=== PATIENT | male | born 1960 | race Caucasian/White ===

== ENCOUNTER → 2024-03-13 | Outpatient (CLI) | payer BC, SELFPAY ==
[2024-03-13 14:35] LABS: Misc Send Out* See Sep Rpt
== END | disposition home or self-care (01) ==
PROVIDERS: PCP Family Medicine; Referring Provider Family Medicine; Visit Provider Family Medicine
DX: E01.2 Iodine-deficiency related (endemic) goiter, unspecified (principal)
CPT/HCPCS: 83789

== ENCOUNTER 2024-04-08 16:17 | Inpatient (IN) | payer BC, SELFPAY ==
[2024-04-08] VITALS (29 sets, daily range): BP systolic 114–179; BP diastolic 81–114; PULSE 70–122; RESP 8–28; TEMP 36.3–36.8; O2SAT 92–97; BMI 34.0
--- NOTE | 2024-04-08 16:34 | EKG_ITS ---
[facility] (Formerly [facility]) Test Date: 2024-04-08 Pat Name: ASHLEIGH RUIZ Department: Room: - Gender: Male Adoption Manager: : 1960 Requested By: ED Temporary Provider Order Number: [id number] Reading MD: ED Temporary Provider Measurements Intervals [place] Rate: 117 P: -51 [place]: 157 QRS: -70 QRSD: 109 T: 60 QT: 326 QTc: 455 Interpretive Statements SINUS TACHYCARDIA PATTERN CONSISTENT WITH PULMONARY DISEASE INCOMPLETE RIGHT BUNDLE BRANCH BLOCK [90+ ms QRS DURATION, TERMINAL R IN V1/V2, 40+ ms S IN I/aVL/V4/V5/V6] LEFT ANTERIOR FASCICULAR BLOCK [QRS AXIS <= -45, QR IN I, RS IN II] Compared to ECG 09/29/2022 21:17:45 Incomplete right bundle-branch block now present First degree AV block no longer present /store/S0/[id number]/ecg/[id number].pdf
--- NOTE | 2024-04-08 17:08 | XR_ITS ---
Examination: CT brain head without contrast. 2-D sagittal coronal reconstructions Date and time of exam:April 08, 2024 at 1714 hrs. Indications: Stroke alert, onset focal neurologic deficit today CTDI: vol (mGy):55.8 DLP: (mGycm):1114 Technique: Multiple CT axial sections of the brain have been obtained, 5 mm slice thickness. Contrast has not been administered. 2-D sagittal, coronal reconstructions have been obtained Low dose protocols were performed. One or more of the following dose reduction techniques were used; automated exposure control, adjustment of the mA and/or KV according to patient size, use of iterative reconstruction technique. Findings: No significant ventricular enlargement. Intra-axial or extra-axial hemorrhage density is not seen. No mass effect or midline shift Basal cisterns are not remarkable. Fourth ventricle is midline. Cranial vault intact. Impression: Negative for acute hemorrhage, mass effect or midline shift
--- NOTE | 2024-04-08 17:08 | EDRME_ITS ---
Rapid Medical Screening Exam [facility] Arrival date/time: 04/08/24 16:17 63-year-old male presents to the emergency department today complaints of headache, hypertension and left-sided arm weakness and left leg weakness Chief Complaint: Chest Pain Vital signs: Vital Signs Temperature 97.4 F 04/08/24 16:39 Pulse Rate 122 H 04/08/24 16:39 Respiratory Rate 20 04/08/24 16:39 Blood Pressure 133/96 H 04/08/24 16:39 Pulse Oximetry (%) 96 04/08/24 16:39 Oxygen Delivery Method Room Air 04/08/24 16:39
--- NOTE | 2024-04-08 17:08 | XR_ITS ---
Examination: CTA carotids with intravenous contrast CTA brain, head with intravenous contrast. 2-D sagittal, coronal reconstructions. 3-D reconstructions. Exam date and time: April 08, 2024 1721 hrs. Indications: Stroke alert, onset focal neurologic deficit today CTDI: vol (mGy) 23.3 DLP: (mGycm) 184 Technique: Multiple CTA axial brain, head carotid images post intravenous contrast injection 100 cc, [id number]. 2-D sagittal, coronal reconstructions. 3-D reconstructions, 3-D post processing including vascular maximum intensity projection images. Low dose protocols were performed. One or more of the following dose reduction techniques were used; automated exposure control, adjustment of the mA and/or KV according to patient size, use of iterative reconstruction technique. Findings: No significant common carotid carotid bifurcation or internal carotid artery stenoses Dominant right vertebral artery, quite small but intact left vertebral artery Intracranial vertebral arteries basilar artery posterior cerebral branches do fill with 80% stenosis left posterior cerebral artery P3 segment No significant stenoses juxtasellar or supracondylar portions internal carotid arteries M1 segments middle cerebral arteries, anterior cerebral arteries Impression: No significant neck arterial stenoses 80% stenosis P3 segment left posterior cerebral artery No cerebral large vessel occlusions or thrombus
--- NOTE | 2024-04-08 17:12 | PC.NURSE ---
THIS NURSE CURRENTLY WITH PATIENT IN CT.
[2024-04-08 17:25] LABS: Base Excess, Venous 3 (-3-3); O2 Saturation, Venous 79 % (96-97); PCO2, Venous 36 mmHg (36-56); PO2, Venous 38 mmHg (15-58); pH, Venous 7.48 (7.33-7.66)
[2024-04-08 17:28] LABS: Basophils # (Auto) 0.1 Thou/mm3 (0.0-0.2); Basophils % (Auto) 1 % (0-2.5); Eosinophils # (Auto) 0.2 Thou/mm3 (0.0-0.5); Eosinophils % (Auto) 2 % (0-10); Hematocrit 41.5 % (41.0-53.0); Hemoglobin 14.7 g/dL (13.5-16.0); Immature Granulocytes % (Auto) 0 % (0-0); Immature Granulocytes Auto 0.04 Thou/mm3 (0.00-0.00); Lymphocytes # (Auto) 6.7 Thou/mm3 (1.0-4.8); Lymphocytes % (Auto) 48 % (10-50); Mean Corpuscular HGB Conc 35.4 g/dl (31.0-37.0); Mean Corpuscular Hemoglobin 30.1 pg (25.0-35.0); Mean Corpuscular Volume 85 fL (80-100); Monocytes # (Auto) 1.4 Thou/mm3 (0.0-0.8); Monocytes % (Auto) 10 % (0-12); Neutrophils # (Auto) 5.6 Thou/mm3 (1.8-7.7); Neutrophils % (Auto) 40 % (37-80); Nucleated Red Blood Cell % 0 /100 WBC (0); Platelet Count 495 Thou/mm3 (140-440); RDW Standard Deviation 36.6 fL (35.1-43.9); Red Blood Count 4.88 Miln/mm3 (4.50-5.90); White Blood Count 14.1 Thou/mm3 (3.8-10.6)
[2024-04-08 17:32] LABS: Beta Hydroxybutyrate 0.1 mmol/L (<0.6)
[2024-04-08 17:44] LABS: Partial Thromboplastin Time 24.3 Seconds (22.0-36.0)
--- NOTE | 2024-04-08 17:45 | PC.NURSE ---
PATIENT SPEAKING WITH TELE NEUROLOGIST, PATIENT VERBALIZES UNDERSTANDING OF TENECTEPLASE MEDICATION RISKS AND BENEFITS, PATIENT VERBALLY CONSENTS TO RECEIVING TENECTEPLASE.
[2024-04-08 17:47] LABS: Glucose Estimated Average 346 mg/dL (80-131); Hemoglobin A1C 13.7 % Hgb (4.8-6.0)
[2024-04-08 17:48] LABS: B-Type Natriuretic Peptide < 20 pg/mL (0-100)
[2024-04-08] MEDS: TENECTEPLASE INJ 50 MG VIAL 25 MG IV (17:53)
[2024-04-08 18:05] LABS: Alanine Aminotransferase 15 U/L (10-49); Albumin, Serum 4.4 gm/dL (3.4-4.8); Albumin/Globulin Ratio 1.6 (1.2-2.2); Alkaline Phosphatase 106 U/L (46-116); Anion Gap 8 (7-16); Aspartate Amino Transferase 14 U/L (0-34); BUN/Creatinine Ratio 8 Ratio (12-20); Bilirubin,Total 0.2 mg/dL (0.3-1.2); Blood Urea Nitrogen 10 mg/dL (9-23); Calcium 9.5 mg/dL (8.3-10.6); Calcium (Corrected) 9.5 mg/dL (8.5-10.1); Carbon Dioxide 27.8 mMol/L (20.0-31.0); Chloride 96 mMol/L (98-107); Creatinine (Component) 1.2 mg/dL (0.6-1.3); Estimated Creatinine Clearance 87.2 mL/min (>60); Globulin 2.8 gm/dL (2.3-3.5); Magnesium 2.1 mg/dL (1.6-2.6); Osmolality,Calculated 286 (275-295); Potassium 3.3 mMol/L (3.4-5.1); Sodium 132 mMol/L (136-145); Total Protein 7.2 gm/dL (5.7-8.2); Troponin I < 0.020 ng/mL (0.0-0.045); eGFR > 60 See Note
--- NOTE | 2024-04-08 18:10 | PD.TNEURO ---
Tele Neuro Consultation Consultation Date 04/08/24 Most Recent Vital Signs Last Vital Signs Temp 98.0 F 04/08/24 17:52 Pulse 97 04/08/24 17:52 Resp 20 04/08/24 17:52 BP 179/114 H 04/08/24 17:52 Pulse Ox 96 04/08/24 17:52 O2 Del Method Room Air 04/08/24 17:52 Laboratory-Coagulation Panel PT 11.0 Seconds (9.0-12.2) 04/08/24 17:17 INR 1.0 (0.9-1.3) 04/08/24 17:17 APTT 24.3 Seconds (22.0-36.0) 04/08/24 17:17 Consultation Narrative [facility] Patient Name:???Hitesh Sanchez Date of :???1960 Identification Number:??? Date of Service:???04/08/2024 17:20:26 Diagnosis:?I63.89 - Cerebrovascular accident (CVA) due to other mechanism ([facility]) Impression: ?Patient is a 63-year-old male with a past medical history significant for hypertension, diabetes, hyper lipidemia is being evaluated for concerns of left-sided numbness and weakness. ?Acute onset of left-sided numbness involving the upper and lower extremity and mild weakness along with mild chest pain. Had prior episodes like this where his left side became numb, however it fully resolved. Mentions that he started taking aspirin. He took 2 full dose aspirin after symptoms started. ?Is within IV thrombolytic window. ?Mild pronator drift on the left upper extremity along with ataxia. Mild lower extremity weakness and numbness on the left side. Gait is impaired as patient is stumbling when he is walking. ?Suspicion is for acute vascular event involving the right basal ganglia, small vessel etiology. ?Risks and benefits of IV thrombolysis was discussed in detail with the patient. Indications/contraindications were also discussed in detail. ?Patient agrees to IV thrombolytic treatment. TNKase was administered without any complications. ?Follow-up post TNKase protocol. ?Complete stroke workup. Our recommendations are outlined below. Recommendations: IV Tenecteplase recommended. I confirmed the following. (Patient name, , MRN, Blood Pressure, dose of Thrombolytic and waste, weight completed by stretcher/scale not stated weight, have ED staff inform ED MD of thrombolytic decision) Thrombolytic bolus given Without Complication. IV Tenecteplase Total Dose ? 25.0 mg Routine post Thrombolytic monitoring including neuro checks and blood pressure control during/after treatment Monitor blood pressure Check blood pressure and neuro assessment every 15 min for 2 h, then every 30 min for 6 h, and finally every hour for 16 h. Manage Blood Pressure per post Thrombolytic protocol. ? Follow designated hospital protocol for admission and post thrombolytic care ? CT brain 24 hours post Thrombolytic ? NPO until swallowing screen performed and passed ? No antiplatelet agents or anticoagulants (including heparin for DVT prophylaxis) in first 24 hours ? No Gardiner catheter, nasogastric tube, arterial catheter or central venous catheter for 24 hr, unless absolutely necessary ? Telemetry ? Bedside swallow evaluation ? HOB less than 30 degrees ? Euglycemia ? Avoid hyperthermia, PRN acetaminophen ? DVT prophylaxis ? Inpatient Neurology Consultation ? Stroke evaluation as per inpatient neurology recommendations Discussed with ED physician Advanced Imaging:CTA Head and Neck Completed. LVO:No Patient in not a candidate for ELAINA Metrics: Last Known Well: 04/08/2024 15:30:00 Dispatch Time: 04/08/2024 17:20:26 Arrival Time: 04/08/2024 17:23:00 Initial Response Time: 04/08/2024 17:26:28Symptoms: left side numbness. Initial patient interaction: 04/08/2024 17:38:16 NIHSS Assessment Completed: 04/08/2024 17:38:30Patient is a candidate for Thrombolytic. Thrombolytic Medical Decision: 04/08/2024 17:39:27 Needle Time: 04/08/2024 17:52:00Weight Noted by Staff: 124.[address] head showed no acute hemorrhage or acute core infarct. Primary Provider Notified of Diagnostic Impression and Management Plan on: 04/08/2024 17:58:01 Thrombolytic Contraindications: Last Known Well > 4.5 hours:?No CT Head showing hemorrhage:?No Ischemic stroke within 3 months:?No Severe head trauma within 3 months:?No Intracranial/intraspinal surgery within 3 months:?No History of intracranial hemorrhage:?No Symptoms and signs consistent with an SAH:?No GI malignancy or GI bleed within 21 days:?No Coagulopathy: Platelets <100 000 /mm3, INR >1.7, aPTT>40 s, or PT >15 s:?No Treatment dose of LMWH within the previous 24 hrs:?No Use of NOACs in past 48 hours:?No Glycoprotein IIb/IIIa receptor inhibitors use:?No Symptoms consistent with infective endocarditis:?No Suspected aortic arch dissection:?No Intra-axial intracranial neoplasm:?No Thrombolytic Decision and Management Plan: Management with thrombolytic treatment was explained to the Patient as was risks and benefits and alternatives to the treatment. Patient agrees with the decision to proceed with thrombolytic treatment. . All questions were answered and the Patient expressed understanding of the treatment plan. History of Present Illness:Patient is a 63 year old Male. Patient was brought by private transportation with symptoms of left side numbness. Patient is a 63-year-old male with a past medical history significant for hypertension, diabetes, hyper lipidemia is being evaluated for concerns of left-sided numbness and weakness. Patient mentions that around 2 hours back he was perfectly normal. He was walking around the house. He was feeling something was not right, so he went and took a nap. Around 90 minutes ago he started noticing that there was some mild chest pain and numbness involving the left side of his body. Mentions that he is able to walk, however there is weakness in his left leg and kind of stumbles around. Mentions that he took 2 full dose aspirins before he came into the ED. ? Past Medical History: ?Hypertension ?Diabetes Mellitus ?Hyperlipidemia Medications: No Anticoagulant use? Antiplatelet use:?Yes?ASA Reviewed EMR for current medications Allergies:? Description:?As per chart Social History: Drug Use: No Family History: There is no family history of premature cerebrovascular disease pertinent to this consultation ROS : 14 Points Review of Systems was performed and was negative except mentioned in HPI. Past Surgical History: There Is No Surgical History Contributory To Today?s Visit ? Examination: BP(129/96),?Pulse(95),?Blood Glucose(465) 1A: Level of Consciousness - Alert; keenly responsive?+ 0 1B: Ask Month and Age - Both Questions Right?+ 0 1C: Blink Eyes & Squeeze Hands - Performs Both Tasks?+ 0 2: Test Horizontal Extraocular Movements - Normal?+ 0 3: Test Visual Angela - No Visual Loss?+ 0 4: Test Facial Palsy (Use Grimace if Obtunded) - Normal symmetry?+ 0 5A: Test Left Arm Motor Drift - Drift, but doesn't hit bed?+ 1 5B: Test Right Arm Motor Drift - No Drift for 10 Seconds?+ 0 6A: Test Left Leg Motor Drift - Drift, but doesn't hit bed?+ 1 6B: Test Right Leg Motor Drift - No Drift for 5 Seconds?+ 0 7: Test Limb Ataxia (FNF/Heel-Burrell) - Ataxia in 1 Limb?+ 1 8: Test Sensation - Mild-Moderate Loss: Less Sharp/More Dull?+ 1 9: Test Language/Aphasia - Normal; No aphasia?+ 0 10: Test Dysarthria - Normal?+ 0 11: Test Extinction/Inattention - No abnormality?+ 0 NIHSS Score:?4 Pre-Morbid Modified Derick Scale:1 Points = No significant disability despite symptoms; able to carry out all usual duties and activities Spoke with :?ED Provider This consult was conducted in real time using interactive audio and video technology. Patient was informed of the technology being used for this visit and agreed to proceed. Patient located in hospital and provider located at home/office setting. Patient is being evaluated for possible acute neurologic impairment and high probability of imminent or life-threatening deterioration. I spent total of 56 minutes providing care to this patient, including time for face to face visit via telemedicine, review of medical records, imaging studies and discussion of findings with providers, the patient and/or family. Dr Cam Cruz [facility] For Inpatient follow-up with [facility] physician please call [facility] at . As we are not an outpatient service for any post hospital discharge needs please contact the hospital for assistance. If you have any questions for the [facility] physicians or need to reconsult for clinical or diagnostic changes please contact us via [facility] at . ?
[2024-04-08 18:12] LABS: Glucose 508 mg/dL (74-106)
[2024-04-08 18:49] LABS: Collection Type, Urine Clean Catch; Squamous Epithelial Cell,Urine 0 /hpf (0-5)
[2024-04-08 18:56] LABS: Bilirubin,Urine Negative (Negative); Blood,Urine Negative (Negative); Clarity,Urine Clear (Clear/Hazy); Color,Urine Lt-Yellow (Lt Yel-Yel); Glucose, Urine 4+ (Negative); Ketones,Urine Negative (Negative); Leukocyte Esterase,Urine Negative (Negative); Nitrite,Urine Negative (Negative); PH,Urine 6.5 (5.0-7.0); Protein,Urine Negative (Neg - Trace); RBC,Urine 1 /hpf (0-3); Specific Gravity,Urine 1.043 (1.001-1.035); Urobilinogen,Urine Negative mg/dL (0.0-1.0); WBC,Urine < 1 /hpf (0-5)
--- NOTE | 2024-04-08 19:25 | PC.NURSE ---
First contact with pt in Room 17, pt changed into gown, connected to bedside monitor, call light within reach. Pt's currently at bedside.
[2024-04-08] MEDS: ONDANSETRON INJ 2 MG/ML INJ 2 ML 4 MG IV (19:32)
[2024-04-08] MEDS: ACETAMINOPHEN IVPB 1,000 MG/100 ML VIAL 250 MG IV (19:35)
--- NOTE | 2024-04-08 20:13 | PC.NURSE ---
ED provider currently at bedside evaluating pt.
--- NOTE | 2024-04-08 20:22 | PD.EDCHEST ---
ED Chest Pain RME/HPI General Chief Complaint: Chest Pain Stated Complaint: CHEST PAIN RADIATING DOWN LEFT ARM Time Seen by Provider: 04/08/24 17:51 Arrival date/time: 04/08/24 16:17 This is a 63-year-old male that comes in with complaints of chest pain radiating down his left arm, headache, high blood pressure, left-sided arm weakness and numbness and left-sided leg weakness and numbness that started at approximately 3:30 PM today. Patient reports that he had a very similar episode that happened 04/06/24 at night. At that time he only had left arm weakness and numbness. Patient called his son which she is a registered nurse and he told him to take 2 full dose aspirins. Patient states that his symptoms resolved after the aspirin was taken at that time. Patient saw his primary doctor the next day and and his primary provider told him he was going to send him with a patternmaker metal. Today patient had another episode but it also involved his lower extremities so he was brought to the emergency room. Patient took 2 full dose aspirins prior to arrival per patient. Patient has a history of high blood pressure, diabetes. 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 Patient had E. coli infection after that procedure And had an abdominal drain for a long period of time after surgery. There is no drain at this time. Patient also had history of several hernia surgeries in the past. RME / HPI RME / HPI narrative: 04/08/24 16:17 63-year-old male presents to the emergency department today complaints of headache, hypertension and left-sided arm weakness and left leg weakness Related Data Home Medications ?Medication ?Instructions ?Recorded ?Confirmed Hydrocodone/Acetaminophen * (NORCO 1 tab PO Q6HR PRN Pain #0 tabs 08/25/16 04/09/24 10/325 *) insulin glargine-yfgn 100 unit/mL 40 unit subcut QAM 04/08/24 04/08/24 (3 mL) subcutaneous pen (Semglee (insulin glargine-yfgn) Pen) lorazepam 1 mg tablet 1 mg PO Q8H Anxiety 04/08/24 04/09/24 losartan 100 1 tab PO QDAY HTN 02/01/25 02/01/25 mg-hydrochlorothiazide 25 mg tablet nifedipine 60 mg tablet,extended 60 mg PO .qhs htn 04/08/24 04/09/24 release Allergies Allergy/AdvReac Type Severity Reaction Status Date / Time No Known Allergies Allergy Verified 04/08/24 16:20 Review of Systems Review of Systems Systems Reviewed: All systems reviewed, normal except as documented Past Medical History Past Medical History ENDOCRINE: Positive Endocrine Disorders and Diabetes Mellitus Type 2 OTHER HISTORY: Positive Hospitalization, Chicken Pox, Measles and Mumps Social History SMOKING STATUS: Never smoker SUBSTANCE USE: does not use ALCOHOL: Never ED Exam Narrative Physical exam: Patient was seen by previous provider upon arrival. I did not see patient prior to getting the TNKase. Assessment done by me was after patient received TNKase. General General appearance: Present alert and in no apparent distress Head Head exam: Present atraumatic Eye Eye exam: Present normal appearance, PERRL and EOMI ENT ENT exam: Present normal exam, normal oropharynx and mucous membranes moist Neck Neck exam: Present normal inspection, full ROM and trachea midline Chest Chest inspection: Present normal inspection and symmetric chest wall rise Respiratory Respiratory exam: Present normal lung sounds bilaterally Cardiovascular Cardiovascular exam: Present regular rate, normal rhythm and normal heart sounds Abdominal Exam Abdominal exam: Present soft Extremities Exam Extremities exam: Present normal inspection and full ROM Back Exam Back exam: Present normal inspection and full ROM Neurological Exam Neurological exam: Present alert, oriented X3 and other (Patient reports altered sensation to his left arm, patient slightly weaker on the left arm and leg, left leg strength 4/5, left arm strength 4/5, right leg strength 5/5, right arm strength 5/5) Psychiatric Psychiatric exam: Present normal affect and normal mood Skin Skin exam: Present warm, dry, intact and normal color Course Quality Measures Suspected type of Stroke: Acute Ischemic Last known well (date): 04/08/24 Last known well (time): 15:30 Tenecteplase given: within 60 min of arrival stroke Orders Category Date Time Status Bedside Blood Glucose NOW Care 04/08/24 17:08 Active COVID-19 Screening Questionnaire NOW Care 04/08/24 21:00 Active Shipping Helper NOW Care 04/08/24 17:08 Active Continuous Pulse Oximetry NOW Care 04/08/24 17:08 Completed Decision to Admit X1 Care 04/08/24 21:00 Completed EKG (ED ONLY) *Do not use* NOW Care 04/08/24 16:34 Completed Glucose [Bedside Blood Glucose] NOW Care 04/08/24 20:20 Active Insert IV NOW Care 04/08/24 17:08 Active NIH Stroke Scale now Care 04/08/24 17:08 Active NPO NOW Care 04/08/24 17:08 Active Nurse Swallow Screen x1 Care 04/08/24 17:08 Active Consult to Neurology / Tele-Neurology Routine Cons 04/08/24 17:[address] angio stroke protocol Stat Exams 04/08/24 17:[address] stroke protocol Stat Exams 04/08/24 17:08 Completed EKG (ED Only) Stat Exams 04/08/24 16:34 Draft A1C [Glycohemoglobin w (eAG)] Stat Lab 04/08/24 17:17 Completed B-Type Natriuretic Peptide Stat Lab 04/08/24 17:17 Completed Beta Hydroxybutyrate Stat Lab 04/08/24 17:17 Completed CBC Stat Lab 04/08/24 17:17 Completed Comprehensive Metabolic Panel Stat Lab 04/08/24 17:17 Completed Drug Screen,Urine Stat Lab 04/08/24 18:42 Completed Magnesium Stat Lab 04/08/24 17:17 Completed Partial Thromboplastin Time Stat Lab 04/08/24 17:17 Completed Prothrombin Time with INR Stat Lab 04/08/24 17:17 Completed Troponin I Stat Lab 04/08/24 17:17 Completed Urinalysis Stat Lab 04/08/24 18:42 Completed VBG [Venous Blood Gas] Stat Lab 04/08/24 17:17 Completed Acetaminophen Ivpb [Ofirmev Inj] Med 04/08/24 19:03 Discontinued 1,000 mg in 100 ml IV NOW Insulin Regular Med 04/08/24 20:28 Discontinued 10 unit SC X1 ONE Ondansetron Inj [Zofran Inj] Med 04/08/24 19:08 Discontinued 4 mg IV X1 ONE Potassium Chloride [K-Dur] Med 04/08/24 20:53 Discontinued 20 meq PO X1 ONE Tenecteplase Inj [TNKase Inj] Med 04/08/24 17:44 Discontinued 25 mg IV X1 ONE Tenecteplase Inj [TNKase Inj] Med 04/08/24 17:40 Discontinued 50 mg .ROUTE .STK-MED ONE Vital Signs Vital signs: Vital Signs Temperature 97.4 F 04/08/24 16:39 Pulse Rate 122 H 02/01/25 16:39 Respiratory Rate 20 04/08/24 16:39 Blood Pressure 133/96 H 04/08/24 16:39 Pulse Oximetry (%) 96 04/08/24 16:39 Oxygen Delivery Method Room Air 04/08/24 16:39 Procedures -ED EKG Interpretation #1: Date of EK04/08/24 Time of EK:41 Rate: 117 Interpretation: Interpreted by me (Sinus tachycardia with a incomplete right bundle branch block and left anterior fascicular block.n ) EKG Impression: No ectopy, Normal QRS and Normal intervals Chest Pain MDM Narrative MDM Narrative:: Stroke alert was called 1708. CT head shows: Findings: No significant ventricular enlargement. Intra-axial or extra-axial hemorrhage density is not seen. No mass effect or midline shift Basal cisterns are not remarkable. Fourth ventricle is midline. Cranial vault intact. Impression: Negative for acute hemorrhage, mass effect or midline shift CTA head and neck done: Findings: No significant common carotid carotid bifurcation or internal carotid artery stenoses Dominant right vertebral artery, quite small but intact left vertebral artery Intracranial vertebral arteries basilar artery posterior cerebral branches do fill with 80% stenosis left posterior cerebral artery P3 segment No significant stenoses juxtasellar or supracondylar portions internal carotid arteries M1 segments middle cerebral arteries, anterior cerebral arteries Impression: No significant neck arterial stenoses 80% stenosis P3 segment left posterior cerebral artery No cerebral large vessel occlusions or thrombus Dr. Brown was informed of patient upon arrival when stroke alert was called. Teleneurology was also contacted and they spoke to Dr Cam Cruz. Consultation was done and TNKase recommended. Patient was given TNKase at 1752 documented NIH. Was 3 at that time per teleneurology. Upon my initial assessment, patient had already been given TNKase and most of his symptoms have resolved. I assessed patient at bedside at approx 2000. Patient states that he is able to move his left arm and leg with no difficulty. Patient states his intake sensation to his left leg is almost resolved but still has some numbness and tingling to his left arm. Patient has a clear speech. No facial droop. Patient's labs show a white count of 14.1. Hemoglobin and hematocrit of 14.7 and 41.5, platelet count of 495, PT PT/INR unremarkable. Bmp shows a sodium of 132, potassium 3.3, chloride of 96, BUN/creatinine okay, glucose 508. Patient's hemoglobin A1c is 13.7. Troponin and BNP unremarkable. Patient was given some Tylenol for it headache he complained about initially. It seemed to help and resolve the headache. Patient was also given 10 units of subcu insulin. Patient data External records reviewed:: [facility] previous records Clinical information provided by:: patient Social determinants that could affect healthcare access:: none Patient has the following chronic illnesses:: see hpi How is presenting disease/condition affected by chronic disease/condition?: exacerbated by Evaluation data The following diagnostics were reviewed and interpreted by me:: lab results, radiology exam(s) and EKG tracing(s) Lab and/or radiology exams considered but not ordered:: none Interpretation Summary: see note Medications / Prescriptions Medications or Prescriptions considered but not ordered:: none Medication administrations:: Medication Administration History Acetaminophen (Acetaminophen 325 Mg Tablet) 650 mg PO Q6HR PRN PRN Reason: Fever >101, pain 1-3 Stop: 05/08/24 22:31 Last Admin: 04/08/24 23:35 Dose: 650 mg Documented By: Atorvastatin Calcium (Atorvastatin Calcium 20 Mg Tablet) 80 mg PO HS KM Stop: 05/09/24 20:59 Dextrose (Dextrose 50%-Water Inj 50 Ml Syringe) 25 ml IV Q15MIN PRN PRN Reason: BG 50-70 responsive npo pt Stop: 05/08/24 21:30 Dextrose (Dextrose 50%-Water Inj 50 Ml Syringe) 50 ml IV Q15MIN PRN PRN Reason: BG <50 OR BG <70 & pt unresponsive Stop: 05/08/24 21:30 Glucagon (Glucagon Inj 1 Mg Vial) 1 mg IM Q15MIN PRN PRN Reason: BG <70, and no IV access Insulin Glargine (Insulin Glargine (Lantus) 5 Unit/0.05 Ml (Per 5 Units)) 10 unit SC QDAY [facility] Stop: 05/09/24 08:59 Last Admin: 04/09/24 08:35 Dose: 10 unit Documented By: ELSIE Co-signed By: alyson Insulin Human Lispro (Insulin Lispro (Admelog) 1 Unit/0.01 Ml Unit) 0 unit SC AC [facility]; Protocol Stop: 05/09/24 07:29 Last Admin: 04/09/24 13:11 Dose: 2 unit Documented By: alyson Co-signed By: ZHANE Admin: 04/09/24 08:36 Dose: 1 unit Documented By: ELSIE Co-signed By: alyson Labetalol HCl (Labetalol Inj 5 Mg/Ml Vial 20 Ml) 5 mg IVP Q6H PRN PRN Reason: SBP> 185/90 Stop: 05/08/24 21:59 Discontinued Medications Acetaminophen (Acetaminophen 325 Mg Tablet) 650 mg PO X1 ONE Stop: 04/09/24 02:34 Last Admin: 04/09/24 02:33 Dose: 650 mg Documented By: Comments: per MD Haro, give another 650mg x1 Acetaminophen (Ofirmev Inj) 1,000 mg in 100 mls @ 250 mls/hr IV NOW ONE Stop: 04/08/24 19:26 Last Infusion: 04/08/24 19:59 Dose: Infused Documented By: Admin: 04/08/24 19:35 Dose: 250 mls/hr Documented By: TRACI Acetaminophen (Ofirmev Inj) 1,000 mg in 100 mls @ 250 mls/hr IV X1 ONE Stop: 04/09/24 13:11 Last Admin: 04/09/24 13:37 Dose: 250 mls/hr Documented By: alyson Insulin Human Regular (Insulin Hum Regular 1 Unit/0.01 Ml (Per Unit)) 10 unit SC X1 ONE Stop: 04/08/24 20:29 Last Admin: 04/08/24 20:34 Dose: 10 unit Documented By: TRACI Co-signed By: LAYLA Ketorolac Tromethamine (Ketorolac Inj 30 Mg/Ml Vial) 30 mg IVP X1 ONE Stop: 04/09/24 08:07 Last Admin: 04/09/24 08:35 Dose: 30 mg Documented By: ELSIE Ondansetron HCl (Ondansetron Inj 2 Mg/Ml Inj 2 Ml) 4 mg IV X1 ONE; Protocol Stop: 04/08/24 19:09 Last Admin: 04/08/24 19:32 Dose: 4 mg Documented By: TRACI Potassium Chloride (Potassium Chloride 20 Meq Tabcr) 20 meq PO X1 ONE Stop: 04/08/24 20:54 Last Admin: 04/08/24 21:02 Dose: 20 meq Documented By: TRACI Potassium Chloride (Potassium Chloride 20 Meq Tabcr) 40 meq PO X1 ONE Stop: 04/08/24 21:07 Last Admin: 04/08/24 21:10 Dose: Not Given Documented By: TRACI Non-Admin Reason: Duplicate Medication on eMAR Potassium Chloride (Potassium Chloride 20 Meq Tabcr) 40 meq PO X1 ONE Stop: 04/09/24 04:03 Last Admin: 04/09/24 04:15 Dose: 40 meq Documented By: Tenecteplase (Tenecteplase Inj 50 Mg Vial) Confirm Administered Dose 50 mg .ROUTE .STK-MED ONE Stop: 04/08/24 17:41 Last Admin: 04/08/24 18:50 Dose: Not Given Documented By: LAYLA Non-Admin Reason: Override Medication Tenecteplase (Tenecteplase Inj 50 Mg Vial) 25 mg IV X1 ONE Stop: 04/08/24 17:45 Last Admin: 04/08/24 17:53 Dose: 25 mg Documented By: LAYLA Co-signed By: MARIO see mar Consultations Consultation(s) initiated? (list below): Yes Diagnosis Most likely diagnosis given after review of the tests above:: Acute stroke Admission Indicated Admission indicated?: indicated Admission Request Was there a request for admission?: Yes Admission Attestation Admission request attestation: Discussed case with icu Hospitalist service regarding admission. Discussed patients ED course, exam findings, labs, and radiology results. The Hospitalist agrees to accept the patient for admission. Disposition Plan Disposition Plan: Admit Discharge Plan Plan Patient Disposition: Admit Acute Care w/in Hospital Patient condition on transfer: Stable Problem List Clinical Impression: Uncontrolled diabetes mellitus, HTN (hypertension), Acute CVA (cerebrovascular accident) PA/MULTICULTURAL MANAGER Supervising Physician PA/MULTICULTURAL MANAGER Supervising Physician: larry
[2024-04-08 20:25] LABS: Amphetamine/Methamp Scrn,U Negative (Negative); Barbiturate Screen,Urine Negative (Negative); Benzodiazepines Screen,Urine Negative (Negative); Benzoylecgonine Screen, Ur Negative (Negative); Fentanyl Screen,Urine Negative (Negative); Opiate Screen,Urine Positive (Negative); THC Screen,Urine Negative (Negative)
[2024-04-08] MEDS: INSULIN HUM REGULAR 1 UNIT/0.01 ML (PER UNIT) 10 UNIT SC (20:34)
[2024-04-08] MEDS: POTASSIUM CHLORIDE 20 mEq TABCR PO (21:02)
--- NOTE | 2024-04-08 21:16 | PC.LAC ---
Admitting MD currently at bedside evaluating pt.
--- NOTE | 2024-04-08 21:37 | PD.RESHP ---
Documentation for date of: 04/08/24 [facility] History of Present Illness History of present illness: Patient is a 63-year-old male with past medical history of hypertension, diabetes mellitus type 2, and pancreatic tail resection in 2022 [facility] that presented to the ED with left-sided weakness. Patient states symptoms started 1 hour prior to visiting ED where he started having left upper and left lower extremity weakness that progressively kept getting worse. Patient states on he had left upper extremity weakness and his son who is a nurse told him to take aspirin which seemed to help then. Teleneuro saw patient with NIHSS score of 4 and recommended tenecteplase. Patient agreed with plan and is now being admitted to ICU for close monitoring. Patient states to be feeling better now almost close to baseline after tenecteplase. Patient currently denies any headache, nausea, vomiting, fevers, positive chills, no chest pain, shortness of breath, abdominal pain, constipation, diarrhea, or burning on urination. Patient denies any known drug allergies. Patient denies any drug use, no tobacco, and drinks socially. Patient is full code. Vitals in ED: BP 133/96, HR 122, RR 20, T90 7.4 ?F, O2 96% room air. Pertinent labs: WBCs 14.1, platelets 495, potassium 3.3, glucose 508, A1c 13.7, troponin WNL. Urine positive for opiates. Patient given tenecteplase and potassium while in ED along with insulin. CT head negative for any acute hemorrhage or mass effect. CTA head and neck shows: No significant neck arterial stenoses. 80% stenosis P3 segment left posterior cerebral artery. No cerebral large vessel occlusions or thrombus. Exam Vital Signs Temp Pulse Resp BP Pulse Ox O2 Del Method O2 Flow Rate 97.7 F 76 19 118/88 H 97 Nasal Cannula 2 04/08/24 21:25 04/08/24 21:25 04/08/24 21:25 04/08/24 21:25 04/08/24 21:25 04/08/24 21:04/08/24 21: Narrative Exam GENERAL: Obese male, alert and oriented x3, no acute distress. HEENT: PERRLA, EOMI, nonicteric. HEART: Regular rate and rhythm, no murmurs, rubs or gallops. LUNGS: Distant breath sounds but clear to auscultation bilaterally with symmetrical chest rise. No labored breathing or intercostal retraction. ABDOMEN: Soft?obese, non-tender, no guarding or rebound tenderness. There are no abnormal masses palpated. Active bowel sounds. EXTREMITIES: Non-tender. No edema. Patient is able to move all 4 extremities well. SKIN: Warm and dry, no jaundice or rashes noted. NEURO: Cranial nerves II through XII appear grossly intact. There is no focal neurologic deficits noted. GCS is 15, 5 out of 5 bilateral upper extremity strength. 5 out of 5 right lower extremity strength. 4 out of 5 left lower extremity strength against resistance. Normal [id number]. PSYCHIATRIC: Patient is in normal mood and affect, cooperative. Results: Labs 04/08/24 17:17 04/08/24 17:17 Labs: Short CBC 04/08/24 Range/Units 17:17 WBC 14.1 H (3.8-10.6) Thou/mm3 Hgb 14.7 (13.5-16.0) g/dL Hct 41.5 (41.0-53.0) % Plt Count 495 H (140-440) Thou/mm3 BMP 04/08/24 17:17 Sodium 132 L Potassium 3.3 L Chloride 96 L Carbon Dioxide 27.8 BUN 10 Creatinine 1.2 Glucose 508 H* Calcium 9.5 Cardiac Enzymes 04/08/24 Range/Units 17:17 Troponin I < 0.020 (0.0-0.045) ng/mL Liver Function 04/08/24 Range/Units 17:17 Total Bilirubin 0.2 L (0.3-1.2) mg/dL AST 14 (0-34) U/L ALT 15 (10-49) U/L Alkaline Phosphatase 106 (46-116) U/L Albumin 4.4 (3.4-4.8) gm/dL Urine 04/08/24 Range/Units 18:42 Urine Color Lt-Yellow (Lt Yel-Yel) Urine Clarity Clear (Clear/Hazy) Urine pH 6.5 (5.0-7.0) Ur Specific [place] 1.043 H (1.001-1.035) Urine Protein Negative (Neg - Trace) Urine Glucose (UA) 4+ A (Negative) ABG Interpretation ABG results: 04/08/24 17:17 VBG pH 7.48 VBG pCO2 36 VBG pO2 38 VBG Base Excess 3 Quality Measures Quality Measures VTE prophylaxis (SCD's) and stroke Suspected type of Stroke: Acute Ischemic Last known well (date): 04/08/24 Last known well (time): 15:30 Tenecteplase given: > 60 min of arrival Rehab services: PT evaluation ordered and Speech Language Pathology eval ordered VTE Prophylaxis: mechanical Antithrombotic by day 2:: contraindicated (describe) Statin ordered: <75 y/o high intensity dose Anticoagulation ordered for A-fib or flutter (current or hx): contraindicated Medications Home Medications and Allergies Home Medications ?Medication ?Instructions ?Recorded ?Confirmed ?Type Hydrocodone/Acetaminophen * (NORCO 1 tab PO Q6HR PRN Pain #0 tabs 08/25/16 06/28/19 History *) Allergies Allergy/AdvReac Type Severity Reaction Status Date / Time No Known Allergies Allergy Verified 04/08/24 16:20 Visit Medications Atorvastatin Calcium (Atorvastatin Calcium 20 Mg Tablet) 80 mg PO HS KM Stop: 05/09/24 20:59 Dextrose (Dextrose 50%-Water Inj 50 Ml Syringe) 25 ml IV Q15MIN PRN PRN Reason: BG 50-70 responsive npo pt Stop: 05/08/24 21:30 Dextrose (Dextrose 50%-Water Inj 50 Ml Syringe) 50 ml IV Q15MIN PRN PRN Reason: BG <50 OR BG <70 & pt unresponsive Stop: 05/08/24 21:30 Glucagon (Glucagon Inj 1 Mg Vial) 1 mg IM Q15MIN PRN PRN Reason: BG <70, and no IV access Insulin Glargine (Insulin Glargine (Lantus) 5 Unit/0.05 Ml (Per 5 Units)) 10 unit SC QDAY KM Stop: 05/09/24 08:59 Insulin Human Lispro (Insulin Lispro (Admelog) 1 Unit/0.01 Ml Unit) 0 unit SC AC [facility]; Protocol Stop: 05/09/24 07:29 Discontinued Medications Acetaminophen (Ofirmev Inj) 1,000 mg in 100 mls @ 250 mls/hr IV NOW ONE Stop: 04/08/24 19:26 Last Infusion: 04/08/24 19:59 Dose: Infused Insulin Human Regular (Insulin Hum Regular 1 Unit/0.01 Ml (Per Unit)) 10 unit SC X1 ONE Stop: 04/08/24 20:29 Last Admin: 04/08/24 20:34 Dose: 10 unit Ondansetron HCl (Ondansetron Inj 2 Mg/Ml Inj 2 Ml) 4 mg IV X1 ONE; Protocol Stop: 04/08/24 19:09 Last Admin: 04/08/24 19:32 Dose: 4 mg Potassium Chloride (Potassium Chloride 20 Meq Tabcr) 20 meq PO X1 ONE Stop: 04/08/24 20:54 Last Admin: 04/08/24 21:02 Dose: 20 meq Potassium Chloride (Potassium Chloride 20 Meq Tabcr) 40 meq PO X1 ONE Stop: 04/08/24 21:07 Last Admin: 04/08/24 21:10 Dose: Not Given Tenecteplase (Tenecteplase Inj 50 Mg Vial) 25 mg IV X1 ONE Stop: 04/08/24 17:45 Last Admin: 04/08/24 17:53 Dose: 25 mg Assessment & Plan Plan Patient is a 63-year-old male with past medical history of hypertension and diabetes mellitus that presented with strokelike symptoms. Patient got tenecteplase and is being admitted to ICU for close monitoring. Neuro #CVA S/P tenecteplase CT head negative for any acute hemorrhage or mass effect. CTA head and neck shows: No significant neck arterial stenoses. 80% stenosis P3 segment left posterior cerebral artery. No cerebral large vessel occlusions or thrombus. Patient presented with left lower and upper extremity weakness with NIHSS score of 4 Teleneurology recommended tenecteplase. Patient being admitted to ICU for close monitoring Every hour neurochecks Head of bed elevation 30 degrees Passed swallow eval Pending physical therapy evaluation Pending speech evaluation A1c 13.7 Pending TSH and lipid panel Cardiac echo pending Repeat CT head pending after 24 hours of tenecteplase per teleneuro Neurology consulted appreciate recommendations No aspirin or Plavix for first 24 hours after tenecteplase per teleneuro Cardio #History of hypertension Will monitor for now As needed labetalol for BP greater than 185/90 Pending home med rec Pulm Stable Renal #Pseudohyponatremia Secondary to elevated glucose Patient started on SSI and Lantus Follow-up a.m. labs #Hypokalemia Continue to monitor and replete GI Currently stable Endo #Diabetes mellitus A1c 13.7 Patient started on sliding scale insulin and carb consistent diet Lantus 10 daily Will continue to adjust during hospitalization #Hypothyroidism? TSH 9.73 will order free T4 Patient noted to have elevated serum iodine levels. May be affecting TSH and thyroid ID Currently stable Heme #Thrombocytosis Likely secondary from chronic antibiotic use Will continue to monitor Diet: Carb consistent low DVT prophylaxis: SCDs CODE STATUS: Full code Case discussed with attending physician Dr. Fer Sanchez MD PGY3 Attending Provider Attestation/Addendum I attest that I was physically present for the evaluation, physical examination, lab and imaging review of the patient with the residents. I discussed the case with the residents and agree with the findings and plans of care as documented above. Patient is a 63 years old male with past medical history of hypertension, diabetes mellitus, pancreatic tail resection who presented to the ED with complaint of left-sided weakness. Patient started having the symptoms suddenly before 1 hour prior to arrival in the ED. He had left-sided chest pain radiating towards the left upper limb along with left upper and lower extremity weakness and numbness. At the time of examination patient states that he is symptoms have improved significantly. Patient stated that he took aspirin after the episode. Patient had similar episode few days back which resolved on its own after he took aspirin. In the ED, vital signs are within normal limits. WBC count is 14.1, potassium 3.3, glucose 508, hemoglobin A1c 13.7. Teleneurology was consulted, patient had NIHSS score of 4 and was within window for tenecteplase. Patient received tenecteplase as per neurology recommendation. We will admit patient to ICU for management of CVA status post tenecteplase for close monitoring. We will continue with every hour neurochecks, head to bed elevation, swallow evaluation, physical therapy, lipid panel, echocardiography. Patient's first troponin level were negative, we will obtain 1 more troponin level. Ordered as needed labetalol for blood pressure more than 185/90. Started on Lantus and sliding scale for hyperglycemia. Repleted electrolyte accordingly. We will avoid anticoagulation and antiplatelets for 24 hours, and obtain repeat CT in 24 hours. Patient states he is a full code but would not like life-sustaining measures for more than 10 days. Dedrick Monroe MD
[2024-04-08 22:18] LABS: Cardiac Risk Estimate 4.2 RATIO (4.0-6.7); Cholesterol 154 mg/dL (132-200); HDL Cholesterol 37 mg/dL (40-60); LDL Cholesterol,Calculated 88 mg/dL (0-130); Thyroid Stimulating Hormone 9.73 uIU/mL (0.55-4.78); Triglycerides 144 mg/dL (30-150)
[2024-04-08 22:59] LABS: Free T4 (Free Thyroxine) 0.96 ng/dL (0.89-1.76); Troponin I < 0.020 ng/mL (0.0-0.045)
[2024-04-08] MEDS: ACETAMINOPHEN 325 MG TABLET 650 MG PO (23:35)
[2024-04-09] VITALS (55 sets, daily range): BP systolic 121–187; BP diastolic 82–114; PULSE 58–110; RESP 7–26; TEMP 36.2–36.9; O2SAT 90–100; BMI 34.5
[2024-04-09] MEDS: ACETAMINOPHEN 325 MG TABLET 650 MG PO (02:33)
--- NOTE | 2024-04-09 02:33 | PC.NURSE ---
Patient c/o non-radiating posterior headache rated 6/10. MD Haro made aware and ordered to give another 650mg tylenol as last dose was given at 2335
[2024-04-09] MEDS: POTASSIUM CHLORIDE 20 mEq TABCR 40 MEQ PO (04:15)
[2024-04-09 06:00] LABS: Basophils # (Auto) 0.1 Thou/mm3 (0.0-0.2); Basophils % (Auto) 1 % (0-2.5); Eosinophils # (Auto) 0.2 Thou/mm3 (0.0-0.5); Eosinophils % (Auto) 2 % (0-10); Hematocrit 43.3 % (41.0-53.0); Hemoglobin 14.8 g/dL (13.5-16.0); Immature Granulocytes % (Auto) 0 % (0-0); Immature Granulocytes Auto 0.05 Thou/mm3 (0.00-0.00); Lymphocytes # (Auto) 4.5 Thou/mm3 (1.0-4.8); Lymphocytes % (Auto) 35 % (10-50); Mean Corpuscular HGB Conc 34.2 g/dl (31.0-37.0); Mean Corpuscular Hemoglobin 29.8 pg (25.0-35.0); Mean Corpuscular Volume 87 fL (80-100); Monocytes # (Auto) 1.4 Thou/mm3 (0.0-0.8); Monocytes % (Auto) 11 % (0-12); Neutrophils # (Auto) 6.3 Thou/mm3 (1.8-7.7); Neutrophils % (Auto) 50 % (37-80); Nucleated Red Blood Cell % 0 /100 WBC (0); Platelet Count 522 Thou/mm3 (140-440); RDW Standard Deviation 38.3 fL (35.1-43.9); Red Blood Count 4.97 Miln/mm3 (4.50-5.90); White Blood Count 12.6 Thou/mm3 (3.8-10.6)
[2024-04-09 06:26] LABS: Alanine Aminotransferase 17 U/L (10-49); Albumin, Serum 4.3 gm/dL (3.4-4.8); Albumin/Globulin Ratio 1.5 (1.2-2.2); Alkaline Phosphatase 85 U/L (46-116); Anion Gap 9 (7-16); Aspartate Amino Transferase 14 U/L (0-34); BUN/Creatinine Ratio 13 Ratio (12-20); Bilirubin,Total 0.4 mg/dL (0.3-1.2); Blood Urea Nitrogen 10 mg/dL (9-23); Carbon Dioxide 30.6 mMol/L (20.0-31.0); Chloride 101 mMol/L (98-107); Creatinine (Component) 0.8 mg/dL (0.6-1.3); Estimated Creatinine Clearance 129.5 mL/min (>60); Globulin 2.8 gm/dL (2.3-3.5); Glucose 126 mg/dL (74-106); Magnesium 2.1 mg/dL (1.6-2.6); Osmolality,Calculated 282 (275-295); Potassium 3.6 mMol/L (3.4-5.1); Sodium 141 mMol/L (136-145); Total Protein 7.1 gm/dL (5.7-8.2); eGFR > 60 See Note
[2024-04-09] MEDS: KETOROLAC INJ 30 MG/ML VIAL IVP (08:35)
[2024-04-09] MEDS: INSULIN GLARGINE (Lantus) 5 UNIT/0.05 ML (PER 5 UNITS) 10 UNIT SC (08:35)
[2024-04-09] MEDS: INSULIN LISPRO (AdmeLOG) 1 UNIT/0.01 ML UNIT SC ×3 (08:36→18:25)
--- NOTE | 2024-04-09 13:18 | ESPR_ITS ---
<Statement entered by Xenia Pacheco DO - 04/10/24 07:23> Senior attestation: Patient was examined and case was reviewed with team including attending physician. Note reviewed, I agree with most of its contents and agree with the patient's care. Documentation for date of: 04/09/24 Subjective Subjective Interval history: Hitesh Sanchez is a 61-year-old male with a past medical history of hypertension, type 2 diabetes mellitus, and pancreatic tail resection in 2022 at [facility] who presented to the ED with left-sided numbness and weakness. States that symptoms started 1 hour prior to arrival to ED, in both the upper and lower left extremities. Also had an episode on where patient had left upper extremity weakness and took an aspirin as advised by his son who is a nurse and symptoms resolved within 2 hours. Teleneurology was consulted with NIHSS score of 4 and recommended TNK. Patient agreed with plan was admitted to ICU for close monitoring. 04/09: Seen and examined in ICU. No acute overnight events. States that paresthesias had completely resolved and that his strength feels back to his baseline. Repeat CT scan showed no interval acute hemorrhage, mass effect, or midline shift. Additionally, blood sugars noted to be much improved from 500 to 126 on sliding scale and glargine 10 units daily. Exam Vital Signs Temp Pulse Resp BP Pulse Ox O2 Del Method O2 Flow Rate 97.8 F 80 14 158/114 H 98 Room Air 2 04/09/24 08:01 04/09/24 10:04/09/24 10:04/09/24 10:04/09/24 10:04/09/24 08:04/08/24 21:25 Narrative Exam General: AOx3, no acute distress, able to speak full sentences HEENT: NC/AT, mucous membranes moist, bilateral sclera anicteric Cardiovascular: regular rate and rhythm, S1/S2 present, no murmurs appreciated Pulmonary: clear to auscultation bilaterally, no rales/rhonchi/wheezes Abdominal: soft, non-tender, non-distended, no rebound/guarding, normal bowel sounds present Musculoskeletal: normal ROM, no peripheral edema Skin: warm and dry, intact, no rashes Neuro: CN II-XII intact, no focal deficits - CN II-XII grossly intact - GCS 15 - Sensation intact in upper and lower extremities bilaterally - Strength 5/5 in lower extremities bilaterally, 5/5 in RUE and 4/5 in LUE Objective Labs 04/10/24 04:52 04/10/24 04:52 Labs: Laboratory Results - last 24 hr 04/08/24 04/08/24 04/08/24 17:17 18:42 22:27 WBC 14.1 H RBC 4.88 Hgb 14.7 Hct 41.5 MCV 85 MCH 30.1 MCHC 35.4 RDW Std Deviation 36.6 Plt Count 495 H Neut % (Auto) 40 Lymph % (Auto) 48 Starr % (Auto) 10 Eos % (Auto) 2 Baso % (Auto) 1 Neut # (Auto) 5.6 Lymph # (Auto) 6.7 H Starr # (Auto) 1.4 H Eos # (Auto) 0.2 Baso # (Auto) 0.1 Immature Gran # (Auto) 0.04 H Absolute Nucleated RBC 0.00 Immature Gran % 0 Nucleated RBC % 0 PT 11.0 INR 1.0 APTT 24.3 VBG pH 7.48 VBG pCO2 36 VBG pO2 38 VBG O2 Sat ([place]) 79 L VBG Base Excess 3 Sodium 132 L Potassium 3.3 L Chloride 96 L Carbon Dioxide 27.8 Anion Gap 8 BUN 10 Creatinine 1.2 Estim Creat Clear Calc 87.2 eGFR > 60 BUN/Creatinine Ratio 8 L Glucose 508 H* Estimated Ave Glu mg/dL 346 H Hemoglobin A1c 13.7 H Calculated Osmolality 286 Calcium 9.5 Corrected Calcium 9.5 Magnesium 2.1 Total Bilirubin 0.2 L AST 14 ALT 15 Alkaline Phosphatase 106 Troponin I < 0.020 < 0.020 B-Natriuretic Peptide < 20 Total Protein 7.2 Albumin 4.4 Globulin 2.8 Albumin/Globulin Ratio 1.6 Triglycerides 144 Cholesterol 154 LDL Cholesterol, Calc 88 HDL Cholesterol 37 L Cholesterol/HDL Ratio 4.2 Beta-Hydroxybutyrate/Acetoacetate 0.1 TSH 9.73 H Free T4 0.96 Ur Collection Type Clean Catch Urine Color Lt-Yellow Urine Clarity Clear Urine pH 6.5 Ur Specific [place] 1.043 H Urine Protein Negative Urine Glucose (UA) 4+ A Urine Ketones Negative Urine Blood Negative Urine Nitrite Negative Urine Bilirubin Negative Urine Urobilinogen (Auto) Negative Ur Leukocyte Esterase Negative Urine RBC 1 Urine WBC < 1 Ur Squamous Epith Cells 0 Urine Bacteria None Urine Opiates Screen Positive A Urine Fentanyl Screen Negative Ur Barbiturates Screen Negative U Amphetamin/Meth Scrn Negative U Benzodiazepines Scrn Negative U Cocaine Metab Screen Negative U Marijuana (THC) Screen Negative 04/09/24 04:20 WBC 12.6 H RBC 4.97 Hgb 14.8 Hct 43.3 MCV 87 MCH 29.8 MCHC 34.2 RDW Std Deviation 38.3 Plt Count 522 H Neut % (Auto) 50 Lymph % (Auto) 35 Starr % (Auto) 11 Eos % (Auto) 2 Baso % (Auto) 1 Neut # (Auto) 6.3 Lymph # (Auto) 4.5 Starr # (Auto) 1.4 H Eos # (Auto) 0.2 Baso # (Auto) 0.1 Immature Gran # (Auto) 0.05 H Absolute Nucleated RBC 0.00 Immature Gran % 0 Nucleated RBC % 0 PT INR APTT VBG pH VBG pCO2 VBG pO2 VBG O2 Sat ([place]) VBG Base Excess Sodium 141 Potassium 3.6 Chloride 101 Carbon Dioxide 30.6 Anion Gap 9 BUN 10 Creatinine 0.8 Estim Creat Clear Calc 129.5 eGFR > 60 BUN/Creatinine Ratio [address]ucose [address] Glu mg/dL Hemoglobin A1c Calculated Osmolality 282 Calcium 9.0 Corrected Calcium 9.0 Magnesium 2.1 Total Bilirubin 0.4 AST 14 ALT 17 Alkaline Phosphatase 85 D Troponin I B-Natriuretic Peptide Total Protein 7.1 Albumin 4.3 Globulin 2.8 Albumin/Globulin Ratio 1.5 Triglycerides Cholesterol LDL Cholesterol, Calc HDL Cholesterol Cholesterol/HDL Ratio Beta-Hydroxybutyrate/Acetoacetate TSH Free T4 Ur Collection Type Urine Color Urine Clarity Urine pH Ur Specific [place] Urine Protein Urine Glucose (UA) Urine Ketones Urine Blood Urine Nitrite Urine Bilirubin Urine Urobilinogen (Auto) Ur Leukocyte Esterase Urine RBC Urine WBC Ur Squamous Epith Cells Urine Bacteria Urine Opiates Screen Urine Fentanyl Screen Ur Barbiturates Screen U Amphetamin/Meth Scrn U Benzodiazepines Scrn U Cocaine Metab Screen U Marijuana (THC) Screen ABG Interpretation ABG results: 04/08/24 17:17 VBG pH 7.48 VBG pCO2 36 VBG pO2 38 VBG Base Excess 3 Quality Measures Quality Measures VTE prophylaxis (SCD's) and stroke Suspected type of Stroke: Acute Ischemic Last known well (date): 04/08/24 Last known well (time): 15:30 Tenecteplase given: > 60 min of arrival Rehab services: PT evaluation ordered VTE Prophylaxis: pharmaceutical Antithrombotic by day 2:: ordered Statin ordered: >75 y/o moderate or high intensity dose Anticoagulation ordered for A-fib or flutter (current or hx): not indicated Assessment & Plan Assessment Current Active Medications: Generic Name Dose Route Start Last Admin Trade Name Freq PRN Reason Stop Dose Admin Acetaminophen 650 mg 04/08/24 22:32 04/08/24 23:35 Acetaminophen 325 Mg Tablet PO 05/08/24 22:31 650 mg Q6HR PRN Administration Fever >101, pain 1-3 Atorvastatin Calcium 80 mg 04/09/24 21:00 Atorvastatin Calcium 20 Mg Tablet PO 05/09/24 20:59 HS KM Dextrose 25 ml 04/08/24 21:31 Dextrose 50%-Water Inj 50 Ml Syringe IV 05/08/24 21:30 Q15MIN PRN BG 50-70 responsive npo pt Dextrose 50 ml 04/08/24 21:31 Dextrose 50%-Water Inj 50 Ml Syringe IV 05/08/24 21:30 Q15MIN PRN BG <50 OR BG <70 & pt unresponsive Glucagon 1 mg 04/08/24 21:31 Glucagon Inj 1 Mg Vial IM Q15MIN PRN BG <70, and no IV access Insulin Glargine 10 unit 04/09/24 09:00 04/09/24 08:35 Insulin Glargine (Lantus) 5 Unit/0.05 Ml (Per 5 Units) SC 05/09/24 08:59 10 unit QDAY KM Administration Insulin Human Lispro 0 unit 04/09/24 07:30 04/09/24 13:11 Insulin Lispro (Admelog) 1 Unit/0.01 Ml Unit SC 05/09/24 07:29 2 unit AC KM Administration Protocol Labetalol HCl 5 mg 04/08/24 21:56 Labetalol Inj 5 Mg/Ml Vial 20 Ml IVP 05/08/24 21:59 Q6H PRN SBP> 185/90 Davey Sanchez is a 61-year-old male with a past medical history of hypertension, type 2 diabetes mellitus, and pancreatic tail resection in 2022 at [facility] who presented to the ED with left-sided numbness and weakness. States that symptoms started 1 hour prior to arrival to ED, in both the upper and lower left extremities. Also had an episode on where patient had left upper extremity weakness and took an aspirin as advised by his son who is a nurse and symptoms resolved within 2 hours. Teleneurology was consulted with NIHSS score of 4 and recommended TNK. Patient agreed with plan was admitted to ICU for close monitoring. Neuro #CVA s/p TNK Presents with left-sided weakness and paresthesias. CT head negative for any acute hemorrhage or mass effect. CTA head/neck shows: No significant neck arterial stenoses. 80% stenosis P3 segment L [employer]ICE [employer]ENT[employer]ERK. No cerebral LVO or thrombus. Teleneurology consulted and recommended TNK, thus patient admitted to ICU for close monitoring. Repeat CT head did not show acute interval hemorrhage. - Hourly neurochecks - Head of bed elevation 30 degrees - Passed swallow evaluation, passed speech evaluation, evaluated by PT - A1c 13.7 - Lipid panel wnl, TSH elevated at 9.7 but T4 normal - Cardiac echo pending - Neurology consulted appreciate recommendations - No aspirin or Plavix for first 24 hours after tenecteplase per teleneuro Cardio #History of hypertension Has home losartan-HCTZ and nifedipine. Can restart as deemed appropriate. However, blood pressure has been stable at 130/90. - Labetalol PRN for BP > 185/90 Pulm Stable Renal #Pseudohyponatremia, resolved Secondary to elevated glucose in 500s with corrected Na of 138 #Hypokalemia Continue to monitor and replete GI Stable Endo #Type 2 diabetes mellitus A1c 13.7. Initial blood glucose in 500s that has since been controlled on SSI and 10 units glargine daily - SSI - Lantus 10 daily #Subclinical hypothyroidism TSH 9.73 and T4 within normal limits, no treatment indicated ID Stable Heme #Thrombocytosis Will continue to monitor Hospital management: Disposition: telemetry Pressors: none Sedation: none Fluids: none Diet: diabetic, carb consistent low Lines: peripheral DVT prophylaxis: none GI prophylaxis: none [place]: not indicated CODE STATUS: full code ----- Plan discussed with attending physician Dr. Baltazar and senior resident physician Dr. Junior Verma MD PGY-1 Internal Medicine Attending Provider Attestation/Addendum pt seen and examined with resident, agree with above. in summary this is a 63yo M admitted with stoke like sxs and given tnk. c/o VIZCAINO and no other sxs. denies n/v, fever/chills or additional sxs. pt has a benign physical exam. currently awaiting a fu HCT and MRI, and echo. Maintain BP <180, on insulin for DM. once 24hrs have passed from tnk can be downgraded to tele for ongoing workup. case d/w ICU team labs, imaging, records reviewed ~37min required for eval, exam, review, intervention, discussion and formulation of POC for this pt
[2024-04-09] MEDS: ACETAMINOPHEN IVPB 1,000 MG/100 ML VIAL 250 MG IV (13:37)
--- NOTE | 2024-04-09 17:00 | XR_ITS ---
Examination: CT brain head without contrast. 2-D sagittal coronal reconstructions Date and time of exam:April 09, 2024 at 0530 hours Comparison 05/06/2024 INDICATIONS: Stroke alert, onset focal neurologic deficit April 08, 2024 Post anticoagulation therapy 24 hours CTDI: vol (mGy):55.5 DLP: (mGycm):1134 Technique: Multiple CT axial sections of the brain have been obtained, 5 mm slice thickness. Contrast has not been administered. 2-D sagittal, coronal reconstructions have been obtained Low dose protocols were performed. One or more of the following dose reduction techniques were used; automated exposure control, adjustment of the mA and/or KV according to patient size, use of iterative reconstruction technique. Findings: No significant ventricular enlargement. Intra-axial or extra-axial hemorrhage density is not seen. No mass effect or midline shift Basal cisterns are not remarkable. Fourth ventricle is midline. Cranial vault intact. Impression: No interval acute hemorrhage, mass effect or midline shift
[2024-04-09] MEDS: ATORVASTATIN CALCIUM 20 MG TABLET 80 MG PO (20:16)
[2024-04-09] MEDS: HEPARIN SOD INJ 5000 UNIT/ML VIAL SC (21:37)
[2024-04-09] MEDS: GABAPENTIN 100 MG CAPSULE 200 MG PO (23:28)
[2024-04-10] VITALS (30 sets, daily range): BP systolic 131–164; BP diastolic 74–104; PULSE 56–86; RESP 10–24; TEMP 36–36.9; O2SAT 94–99; BMI 34.7
--- NOTE | 2024-04-10 | XR_ITS ---
Examinations: MRI Brain without intravenous contrast. MRA brain without intravenous contrast. MRA carotids without intravenous contrast 3-D vascular reconstructions Date and time of exam: April 10, 2024 at 1001 hours INDICATIONS: Stroke alert April 09, 2024, onset focal neurologic deficit, left arm numbness, worsening left-sided body weakness post anticoagulation therapy Technique: Multiple axial and sagittal images of the brain have been obtained MRA brain carotid images without contrast obtained, including 3-D postprocessing, vascular maximum intensity projection images Findings: [place] is not enlarged. The optic chiasm and infundibular stalk are not remarkable. Prepontine and interpeduncular cisterns are not enlarged. No localized enlargement of the medulla or miladis. Fourth ventricle and cerebellar tonsils normal in position. Subacute hemorrhage is not seen. Fourth ventricle is midline. Mass in the cerebellopontine angle region is not evident. 7th and 8th nerve complexes exhibits symmetry. Globes are symmetrical with no retro-orbital mass. Increased white matter signal evident, including increased signal on the FLAIR images involving right occipital gyri Diffusion-weighted images demonstrate no focus of restricted diffusion Mass-effect upon the ventricular system is not identified. MRA carotid images degraded by patient motion. MRA brain images no large vessel occlusions Impression: Negative for acute hemorrhage mass effect or midline shift No acute infarct Increased signal right occipital gyri on the FLAIR images, seen with encephalopathy, clinical correlation advised
[2024-04-10 05:52] LABS: Basophils # (Auto) 0.1 Thou/mm3 (0.0-0.2); Basophils % (Auto) 1 % (0-2.5); Eosinophils # (Auto) 0.3 Thou/mm3 (0.0-0.5); Eosinophils % (Auto) 2 % (0-10); Hematocrit 41.2 % (41.0-53.0); Immature Granulocytes % (Auto) 1 % (0-0); Immature Granulocytes Auto 0.07 Thou/mm3 (0.00-0.00); Lymphocytes # (Auto) 3.5 Thou/mm3 (1.0-4.8); Lymphocytes % (Auto) 31 % (10-50); Mean Corpuscular Hemoglobin 29.9 pg (25.0-35.0); Mean Corpuscular Volume 88 fL (80-100); Monocytes # (Auto) 1.3 Thou/mm3 (0.0-0.8); Monocytes % (Auto) 11 % (0-12); Neutrophils # (Auto) 6.2 Thou/mm3 (1.8-7.7); Neutrophils % (Auto) 54 % (37-80); Nucleated Red Blood Cell % 0 /100 WBC (0); Platelet Count 492 Thou/mm3 (140-440); RDW Standard Deviation 38.6 fL (35.1-43.9); Red Blood Count 4.68 Miln/mm3 (4.50-5.90); White Blood Count 11.4 Thou/mm3 (3.8-10.6)
[2024-04-10 06:31] LABS: Alanine Aminotransferase 15 U/L (10-49); Albumin, Serum 4.1 gm/dL (3.4-4.8); Albumin/Globulin Ratio 1.5 (1.2-2.2); Alkaline Phosphatase 79 U/L (46-116); Anion Gap 8 (7-16); Aspartate Amino Transferase 17 U/L (0-34); BUN/Creatinine Ratio 10 Ratio (12-20); Bilirubin,Total 0.6 mg/dL (0.3-1.2); Blood Urea Nitrogen 9 mg/dL (9-23); Calcium 8.9 mg/dL (8.3-10.6); Calcium (Corrected) 8.9 mg/dL (8.5-10.1); Carbon Dioxide 29.7 mMol/L (20.0-31.0); Chloride 101 mMol/L (98-107); Creatinine (Component) 0.9 mg/dL (0.6-1.3); Estimated Creatinine Clearance 115.5 mL/min (>60); Globulin 2.7 gm/dL (2.3-3.5); Glucose 214 mg/dL (74-106); Osmolality,Calculated 282 (275-295); Potassium 4.1 mMol/L (3.4-5.1); Sodium 139 mMol/L (136-145); Total Protein 6.8 gm/dL (5.7-8.2); eGFR > 60 See Note
[2024-04-10] MEDS: INSULIN GLARGINE (Lantus) 5 UNIT/0.05 ML (PER 5 UNITS) 15 UNIT SC (07:50)
[2024-04-10] MEDS: INSULIN LISPRO (AdmeLOG) 1 UNIT/0.01 ML UNIT SC ×2 (07:51→11:59)
[2024-04-10] MEDS: LOSARTAN POTASSIUM 25 MG TABLET PO (09:11)
[2024-04-10] MEDS: GABAPENTIN 100 MG CAPSULE 200 MG PO (09:12)
[2024-04-10] MEDS: ASPIRIN EC 81 MG TABEC PO (09:13)
[2024-04-10] MEDS: CLOPIDOGREL BISULFATE 75 MG TABLET PO (09:13)
[2024-04-10] MEDS: HEPARIN SOD INJ 5000 UNIT/ML VIAL SC (09:13)
--- NOTE | 2024-04-10 11:47 | PC.PT ---
Patient will be dc from PT services secondary to patient is at his PLOF.
--- NOTE | 2024-04-10 13:04 | ESDS_ITS ---
DS: Providers Provider Date of admission: 04/08/24 21:01 Primary care physician: Jatin Osman DO Admitting Provider: Dedrick Monroe MD Attending Provider on Admission: Dedrick Monroe MD Consults: 04/08/24 17:08 Consult to Neurology / Tele-Neurology Routine Comment: Consulting Provider: [facility] 04/08/24 21:05 Consult to Neurology / Tele-Neurology Routine Comment: CVA s/p thrombolytic Consulting Provider: James Shaw Referral Physical Therapy Routine Comment: Physician Instructions: Referral Speech Therapy Routine Comment: Attending Provider on DC: Jatin Osman DO Discharging Provider: Jatin Osman DO Hospital Course Hospital Course Hospital course: pat admitted for acute stroke. eval non hemorragic given tnkase and responded well. in icu stable without any increase in storke ss other midcal problems all stable . blood sugar 508 on admission. came down to 200. work up showed 80% block on left post cerebral art. left sided stroke so this not contributory. rest of workup and course non cont during hospital s mya. no unexpected events occured during stay. my eval today pat is asymptomatic except for min decrease sensation of left arm Status at Discharge Cognitive/behavioral status at discharge: normal Time Spent with Patient Time attestation: Total time spent providing and/or coordinating discharge services: Quality: Stroke Pt Provided Written Stroke Discharge Instructions: Yes Home Health Home Health Referral Orders: none Exam Vital Signs Temp Pulse Resp BP Pulse Ox O2 Del Method O2 Flow Rate 96.8 F 84 12 157/104 H 98 Room Air 2 04/10/24 04:01 04/10/24 09:11 04/10/24 06:00 04/10/24 09:11 04/10/24 06:00 04/10/24 04:01 04/08/24 21:25 Discharge Plan Plan Patient Disposition: HOME (Self Care) Patient condition on transfer: Stable Prescriptions/Referrals Prescriptions/Med Rec: No Action Hydrocodone/Acetaminophen * (NORCO 10/325 *) 1 TAB tablet 1 tab PO Q6HR PRN (Reason: Pain) Qty: 0 lorazepam 1 mg tablet 1 mg PO Q8H losartan-hydrochlorothiazide 100-25 mg tablet 1 tab PO QDAY Patient Comments: TAKE 1 TABLET BY MOUTH EVERY DAY IN THE MORNING nifedipine 60 mg tablet extended release 60 mg PO .qhs Patient Comments: TAKE 1 TABLET BY MOUTH EVERY DAY insulin glargine-yfgn [Semglee(insulin glarg-yfgn)Pen] 100 unit/mL (3 mL) in sulin pen 40 unit subcut QAM Referrals: Jatin Osman DO [Primary Care Provider] - Patient/Caregiver Discharge Instructions Other Discharge Diet Instructions: fu with me wednesday Print Language: Ukrainian Stand Alone Forms: Nancy Award Info., Patient Portal Info Letter Discharge Order Discharge Orders: Discharge (Routine); Ordered 04/10/24 Ordered By: Jatin Osman Discharge Diagnosis - FP Problem List Completed Was Problem List Reviewed/Reconciled?: Yes Planned Discharge Date 04/10/24
== END 2024-04-10 14:44 | disposition home or self-care (01) | DRG 62 ==
LOC: SERX 20:57 → S2SX 04-09 10:02 → SERHOLD 04-10 06:36 → S2SX 04-10 06:36
PROVIDERS: Nurse Practitioner Primary Care; Student in an Organized Health Care Education/Training Program; Admitting Provider Student in an Organized Health Care Education/Training Program; Emergency Provider Emergency Medicine; PCP Family Medicine; Visit Provider Student in an Organized Health Care Education/Training Program
DX: I63.9 Cerebral infarction, unspecified (principal); G81.94 Hemiplegia, unspecified affecting left nondominant side; I10 Essential (primary) hypertension; D75.839 Thrombocytosis, unspecified; R29.704 NIHSS score 4; E03.8 Other specified hypothyroidism; E87.6 Hypokalemia; E11.9 Type 2 diabetes mellitus without complications; E78.5 Hyperlipidemia, unspecified; E66.9 Obesity, unspecified; Z68.34 Body mass index [BMI] 34.0-34.9, adult
CPT/HCPCS: 36415; 70450; 70496; 70498; 70544; 80053; 80061; 80307; 81001; 82010; 82803; 83036; 83735; 83880; 84439; 84443; 84484; 85025; 85610; 85730; 87081; 92610; 93005; 93225; 96365; 96372; 96375; 97161; 99285; A4649; J0131; J1643; J1815; J1885; J2405; J3101; Q9967; A9270

== ENCOUNTER 2024-06-22 06:43 | Day surgery (SDC) | payer BC, SELFPAY ==
--- NOTE | 2024-06-21 07:00 | EKG_ITS ---
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
[2024-06-21 09:23] LABS: Basophils # (Auto) 0.1 Thou/mm3 (0.0-0.2); Basophils % (Auto) 1 % (0-2.5); Eosinophils # (Auto) 0.7 Thou/mm3 (0.0-0.5); Eosinophils % (Auto) 6 % (0-10); Hematocrit 44.6 % (41.0-53.0); Hemoglobin 15.2 g/dL (13.5-16.0); Immature Granulocytes % (Auto) 0 % (0-0); Immature Granulocytes Auto 0.03 Thou/mm3 (0.00-0.00); Lymphocytes # (Auto) 4.4 Thou/mm3 (1.0-4.8); Lymphocytes % (Auto) 39 % (10-50); Mean Corpuscular HGB Conc 34.1 g/dl (31.0-37.0); Mean Corpuscular Volume 88 fL (80-100); Monocytes # (Auto) 1.4 Thou/mm3 (0.0-0.8); Monocytes % (Auto) 13 % (0-12); Neutrophils # (Auto) 4.6 Thou/mm3 (1.8-7.7); Neutrophils % (Auto) 41 % (37-80); Nucleated Red Blood Cell % 0 /100 WBC (0); Platelet Count 622 Thou/mm3 (140-440); RDW Standard Deviation 39.4 fL (35.1-43.9); Red Blood Count 5.06 Miln/mm3 (4.50-5.90); White Blood Count 11.2 Thou/mm3 (3.8-10.6)
[2024-06-21 09:35] LABS: Partial Thromboplastin Time 23.8 Seconds (22.0-36.0); Prothrombin Time 11.3 Seconds (9.0-12.2)
[2024-06-21 09:37] LABS: Anion Gap 7 (7-16); BUN/Creatinine Ratio 8 Ratio (12-20); Blood Urea Nitrogen 8 mg/dL (9-23); Calcium 10.1 mg/dL (8.3-10.6); Carbon Dioxide 33.7 mMol/L (20.0-31.0); Chloride 102 mMol/L (98-107); Glucose 141 mg/dL (74-106); Osmolality,Calculated 285 (275-295); Potassium 3.6 mMol/L (3.4-5.1); Sodium 143 mMol/L (136-145); eGFR > 60 See Note
[2024-06-22] VITALS (12 sets, daily range): BP systolic 122–163; BP diastolic 78–100; PULSE 67–78; RESP 12–17; TEMP 37; O2SAT 94–97; BMI 34.9
--- NOTE | 2024-06-30 16:34 | ESOP_ITS ---
RE: ASHLEIGH RUIZ : 1960 DATE OF OPERATION: 06/22/2024 PROCEDURE PERFORMED: 1. Right and left heart cardiac catheterization, selective coronary angiogram, left ventricular angiogram, CPT 02203. 2. Ultrasound guided access to right radial artery and right brachial vein. 3. Conscious sedation 1 hour duration. DIAGNOSES: Cardiomyopathy, congestive heart failure, abnormal nuclear stress test. HISTORY AND INDICATIONS: The patient is a 63-year-old male with a history of hypertension, diabetes mellitus, has recurrent shortness of breath, chest pain, left arm pain. Echo showed ejection fraction 35%. Nuclear scan also now showed 35% ejection fraction with inferior wall ischemia, hence coronary angiogram and cardiac catheterization is recommended to assess the patient as a candidate for intervention and revascularization. DESCRIPTION OF PROCEDURE: The patient was brought to the cardiac laboratory. He was given conscious sedation, 2 mg Versed and 100 mcg of fentanyl for sedation. Right radial artery was cannulated by Seldinger technique. Ultrasound guidance was used. A 6-[place] Citizen glide sheath was introduced. Right brachial vein was cannulated by micropuncture technique. Ultrasound guidance was used and a 7-[place] Citizen sheath was introduced. Heart catheterization was performed with [place] catheter. Right heart pressure was measured. Left heart catheterization and left ventricular angiogram performed by a 5- [place] Citizen TIG4 diagnostic catheter. The patient tolerated the procedure well. No complications. Cardiac catheterization showed following findings: HEMODYNAMICS: Left ventricular pressure is 122/0, EDP 14, aortic pressure 122/8. No gradient across the aortic valve. Left ventricular angiogram showed evidence of moderate global hypokinesis. Ejection fraction 35% to 40%. Right atrial pressure is found to be 8 mmHg, right ventricular pressure 30/10 mmHg, pulmonary artery pressure 27/14 mmHg, pulmonary artery capillary wedge pressure 7 mmHg. Coronary angiogram showed following findings: Right coronary artery is large and dominant and appears normal. PDA and PL posterolateral branch normal. Left coronary system: Left main coronary artery is normal. Left anterior descending artery appears normal. Circumflex artery is normal. SUMMARY OF FINDINGS: 1. Nonischemic cardiomyopathy. Ejection fraction 35% to 40%. 2. Normal right heart pressures, normal wedge pressure. 3. Moderate LV dysfunction, ejection fraction 35% to 40%. 4. Nonobstructive normal epicardial coronary arteries. RECOMMENDATIONS: The patient is reassured with absence of significant coronary artery disease. The patient has nonischemic cardiomyopathy, heart failure, well compensated. Recommended medical management and will recommend starting on beta blockers and Entresto and pain appears to be noncardiac in nature. DT: 15:30:38 TT: 16:33:00 Ref: [id number] - TID: [id number]
== END 2024-06-22 11:30 | disposition home or self-care (01) ==
PROVIDERS: PCP Family Medicine; Referring Provider Internal Medicine Cardiovascular Disease; Visit Provider Internal Medicine Cardiovascular Disease
PROC: (CPT 93460; principal; 2024-06-22 07:30)
DX: I20.89 Other forms of angina pectoris (principal); E11.9 Type 2 diabetes mellitus without complications; I42.8 Other cardiomyopathies; I11.0 Hypertensive heart disease with heart failure; I50.22 Chronic systolic (congestive) heart failure; R94.30 Abnormal result of cardiovascular function study, unspecified; Z01.810 Encounter for preprocedural cardiovascular examination
CPT/HCPCS: 93460; 36415; 80048; 85025; 85610; 85730; 93005; 99152; A4649; C1769; C1887; C1894; J0171; J0461; J1643; J2250; J2310; J2371; J3010; J3490; Q9967

== ENCOUNTER → 2024-08-09 | Outpatient (CLI) | payer BC, SELFPAY ==
[2024-08-09 09:23] LABS: Albumin, Serum 4.6 gm/dL (3.4-4.8); Anion Gap 13 (7-16); BUN/Creatinine Ratio 9 Ratio (12-20); Blood Urea Nitrogen 9 mg/dL (9-23); Calcium 9.4 mg/dL (8.3-10.6); Calcium (Corrected) 9.4 mg/dL (8.5-10.1); Carbon Dioxide 26.8 mMol/L (20.0-31.0); Chloride 105 mMol/L (98-107); Glucose 179 mg/dL (74-106); Osmolality,Calculated 291 (275-295); Phosphorous 3.3 mg/dL (2.4-5.1); Potassium 4.4 mMol/L (3.4-5.1); Sodium 145 mMol/L (136-145); eGFR > 60 See Note
== END | disposition home or self-care (01) ==
LOC: COPL 07:17
PROVIDERS: PCP Family Medicine; Referring Provider Internal Medicine Cardiovascular Disease; Visit Provider Internal Medicine Cardiovascular Disease
DX: I50.22 Chronic systolic (congestive) heart failure (principal)
CPT/HCPCS: 36415; 80069

== ENCOUNTER → 2024-09-14 | Outpatient (CLI) | payer BC, SELFPAY ==
[2024-09-14 13:24] LABS: Albumin, Serum 4.5 gm/dL (3.4-4.8); Anion Gap 8 (7-16); BUN/Creatinine Ratio 8 Ratio (12-20); Blood Urea Nitrogen 7 mg/dL (9-23); Calcium 9.4 mg/dL (8.3-10.6); Calcium (Corrected) 9.4 mg/dL (8.5-10.1); Carbon Dioxide 29.3 mMol/L (20.0-31.0); Chloride 106 mMol/L (98-107); Creatinine (Component) 0.9 mg/dL (0.6-1.3); Glucose 205 mg/dL (74-106); Osmolality,Calculated 288 (275-295); Phosphorous 3.3 mg/dL (2.4-5.1); Potassium 4.6 mMol/L (3.4-5.1); Sodium 143 mMol/L (136-145); eGFR > 60 See Note
== END | disposition home or self-care (01) ==
LOC: COPL 12:05
PROVIDERS: PCP Family Medicine; Referring Provider Internal Medicine Cardiovascular Disease; Visit Provider Internal Medicine Cardiovascular Disease
DX: I50.22 Chronic systolic (congestive) heart failure (principal); I20.89 Other forms of angina pectoris; I42.8 Other cardiomyopathies; E11.9 Type 2 diabetes mellitus without complications
CPT/HCPCS: 36415; 80069